=== PATIENT | female | born 1945 | race Caucasian/White ===

== ENCOUNTER → 2018-11-30 | Outpatient (CLI) | payer OTHER ==
[~2018-11-30] MED LIST: AZIT250 PO; CALCA500CH PO; CEFU500 PO; DESV50 PO; DOCU100 PO; ERGO50000 PO; ESCI10 PO; ESOM20 PO; Hydrocodone-Ap1 EA23 PO; LANS30EC; LEVSOD125 PO; LIOT5; LORPSEER24 PO; METF500 PO; NAPR220 PO; OMEP20ER; OXYACE5T PO; PANT40; PRAV20 PO; Prilosec Otc20 MG PO; Prinivil10 MG PO; VENL75ER
== END | disposition home or self-care (01) ==
LOC: PLD 08:04 → LAB SHORT 08:04
DX: L57.8 Other skin changes due to chronic exposure to nonionizing radiation (principal); L57.0 Actinic keratosis
CPT/HCPCS: 88305

== ENCOUNTER 2019-10-30 13:56 | Observation (INO) | payer OTHER ==
[~2019-10-30] VITALS: Ht 157.5 cm; Wt 100.2 kg
[~2019-10-30 13:56] MED LIST changes: -ESCI10 PO; -LEVSOD125 PO; -Prinivil10 MG PO
[2019-10-30 14:46] LABS: BASOPHILS PERCENT AUTO 1 % (0-2); EOSINOPHILS ABSOLUTE AUTO 0.36 K/mm3 (0.00-0.68); EOSINOPHILS PERCENT AUTO 5 % (0-6); Hematocrit 43.5 % (33.0-51.0); Hemoglobin 14.2 g/dL (11.5-16.0); IMMATURE GRAN ABSOLUTE AUTO 0.02 K/mm3 (0.00-0.10); IMMATURE GRAN PERCENT AUTO 0 % (0-1); LYMPHOCYTES ABSOLUTE AUTO 1.61 K/mm3 (0.84-5.20); LYMPHOCYTES PERCENT AUTO 22 % (21-46); MONOCYTES ABSOLUTE AUTO 0.84 K/mm3 (0.16-1.47); MONOCYTES PERCENT AUTO 11 % (4-13); Mean Corpuscular HGB 30.7 pg (26.0-34.0); Mean Corpuscular HGB Conc 32.6 g/dL (31.5-36.5); Mean Corpuscular Volume 94 fL (80-100); Mean Platelet Volume 9.5 fL (9.1-12.4); NEUTROPHILS ABSOLUTE AUTO 4.45 K/mm3 (1.96-9.15); NEUTROPHILS PERCENT AUTO 60 % (41-73); Platelet Count 342 K/mm3 (150-400); RDW Coefficient Variation 12.7 % (11.7-14.2); RDW Standard Deviation 43.7 fL (35.1-46.3); Red Blood Cell Count 4.62 M/mm3 (3.80-5.20); White Blood Cell Count 7.38 K/mm3 (4.00-11.30)
[2019-10-30 14:52] LABS: Alanine Aminotransfer (ALT/SGP 22 U/L (12-78); Albumin, Blood 3.7 g/dL (3.4-5.0); Albumin/Globulin Ratio 0.9 (0.8-1.8); Alk Phos 74 U/L (50-136); Anion Gap 9 mmol/L (6-16); Aspartate Aminotrans (AST/SGOT 37 U/L (12-37); Bilirubin, Total 0.5 mg/dL (0.1-1.0); Blood Urea Nitrogen 18 mg/dL (8-24); Bun/Creatinine Ratio 16.1 (12.0-20.0); CO2, Blood 22 mmol/L (21-32); Calcium, Blood 9.4 mg/dL (8.5-10.1); Chloride, Blood 105 mmol/L (98-108); Creatinine, Blood 1.12 mg/dL (0.40-1.00); Globulin, Blood 4.3 g/dL (2.2-4.0); Glomerular Filtration Rate 51 (60-); Glucose, Blood 95 mg/dL (70-99); Potassium, Blood 4.9 mmol/L (3.5-5.5); Sodium, Blood 136 mmol/L (136-145); Troponin I <0.015 ng/mL (0.000-0.040)
[2019-10-30] MEDS ORDERED: Prinivil10 MG PO (15:41)
[2019-10-30] MEDS ORDERED: ESCI10 PO (15:42)
[2019-10-30] MEDS ORDERED: EUTHYROX88 MCG PO (15:43)
[2019-10-30] MEDS ORDERED: ESOM20 PO (16:28)
[2019-10-30 17:01] LABS: International Normalized Ratio 1.07; Prothrombin Time Results 11.4 Sec (9.7-11.5)
--- NOTE | 2019-10-30 18:26 | NUR ---
Echocardiogram completed.
[2019-10-31 01:38] LABS: BASOPHILS ABSOLUTE AUTO 0.08 K/mm3 (0.00-0.23); BASOPHILS PERCENT AUTO 1 % (0-2); EOSINOPHILS ABSOLUTE AUTO 0.56 K/mm3 (0.00-0.68); EOSINOPHILS PERCENT AUTO 9 % (0-6); Hematocrit 40.5 % (33.0-51.0); Hemoglobin 13.3 g/dL (11.5-16.0); IMMATURE GRAN ABSOLUTE AUTO 0.02 K/mm3 (0.00-0.10); IMMATURE GRAN PERCENT AUTO 0 % (0-1); LYMPHOCYTES ABSOLUTE AUTO 1.84 K/mm3 (0.84-5.20); LYMPHOCYTES PERCENT AUTO 29 % (21-46); MONOCYTES ABSOLUTE AUTO 0.87 K/mm3 (0.16-1.47); MONOCYTES PERCENT AUTO 14 % (4-13); Mean Corpuscular HGB 31.4 pg (26.0-34.0); Mean Corpuscular HGB Conc 32.8 g/dL (31.5-36.5); Mean Corpuscular Volume 96 fL (80-100); Mean Platelet Volume 8.9 fL (9.1-12.4); NEUTROPHILS ABSOLUTE AUTO 3.06 K/mm3 (1.96-9.15); NEUTROPHILS PERCENT AUTO 48 % (41-73); Platelet Count 316 K/mm3 (150-400); RDW Coefficient Variation 12.9 % (11.7-14.2); RDW Standard Deviation 44.5 fL (35.1-46.3); Red Blood Cell Count 4.24 M/mm3 (3.80-5.20); White Blood Cell Count 6.43 K/mm3 (4.00-11.30)
[2019-10-31 02:20] LABS: Bun/Creatinine Ratio 18.5 (12.0-20.0); Creatinine, Blood 1.24 mg/dL (0.40-1.00); Magnesium, Blood 1.9 mg/dL (1.6-2.4); Potassium, Blood 4.5 mmol/L (3.5-5.5)
--- NOTE | 2019-10-31 02:31 | NUR ---
PT ADMITTED WITH NEW ONSET AFIB RVR AND CAME TO FLOOR ON HEPARIN GTT. APPT REVIEWED WITH PHARMACY AND WILL ADMINISTER BOLUS AND CONTINUE HEPARIN GTT AT HIGHER RATE. PT up indep in room denies chest pain or acute distress. SOB with activity . Echo done in ER showed EF 47%. Room air. Tele monitor shows sinus rate 60s to 92. occ PVC. to [place] Spouse. PT had flu vaccine this season at [facility]. PT smoked for 50 years quit 3 years ago. Does have co postnasal gtt and nonprod cough noted.
[2019-10-31] MEDS ORDERED: METO25 PO (10:20)
[2019-10-31] MEDS ORDERED: ELIQUIS5 MG PO (10:22)
--- NOTE | 2019-10-31 11:23 | NUR ---
PT PLEASANT COOP A/O . DENIES CHEST PAIN, PRESSURE. H/R REG, NO MURMER NOTED. PER TELE: NSR AT 63. NO EVENTS. LUNGS CLEAR, RESP EASY, UNLABORED. ON R.A. STATES SOB WITH EXERTION, BUT IMPROVED SINCE ADMIT. BT X4 LAST BM YEST. VOIDS INDEPENDANT TO BATHROOM. BED IN LOW POSITION, CALL LITE IN REACH, CALLS APPROP
--- NOTE | 2019-10-31 11:31 | NUR ---
REPORTED TO DR DE LA GARZA. PENDING D.C. PT STATES SOB WITH EXERTION, WALK ABOUT ARENAS. O2 DROPPED TO 89 FOR MOMENT THEN BACK TO 92-94. PT STATES BETTER. BUT NOT FULLY SO. DR SHAZIA SOLER.
--- NOTE | 2019-10-31 12:30 | NUR ---
PT DISCHARGE REVIEWED WITH PT. SHE VERBALIZED INDERSTANDING OF MEDS AND INSTR. IV PULLED INTACT. TELE REMOVED. [facility] CALLED
--- NOTE | 2019-10-31 12:36 | NUR ---
PT OUT WITH [facility] AT 1236
== END 2019-10-31 12:37 | disposition home or self-care (01) ==
LOC: ER 13:56 → MEDS 13:57 → ENPENDDIS 10-31 09:23 → MEDS 10-31 12:37
PROVIDERS: Emergency Medicine; Pharmacist; ADMIT Internal Medicine
DX: I48.0 Paroxysmal atrial fibrillation (principal); I10 Essential (primary) hypertension; N28.9 Disorder of kidney and ureter, unspecified; F32.9 Major depressive disorder, single episode, unspecified; E78.5 Hyperlipidemia, unspecified; K21.9 Gastro-esophageal reflux disease without esophagitis; E03.9 Hypothyroidism, unspecified; Z88.5 Allergy status to narcotic agent; Z91.041 Radiographic dye allergy status; Z88.2 Allergy status to sulfonamides; Z88.8 Allergy status to other drugs, medicaments and biological substances; Z87.891 Personal history of nicotine dependence; Z79.899 Other long term (current) drug therapy
CPT/HCPCS: 36415; 36416; 71046; 80048; 80053; 83735; 84484; 85025; 85379; 85610; 85730; 93005; 93010; 93306; 96366; 96374; 96376; 99285-25; A9270-GY; G0378; J1644

== ENCOUNTER 2019-11-05 10:37 | Emergency (ER) | payer OTHER ==
[~2019-11-05] VITALS: Ht 157.5 cm; Wt 99.8 kg
[~2019-11-05 10:37] MED LIST changes: +ELIQUIS5 MG PO; +ESCI10 PO; +EUTHYROX88 MCG PO; +METO25 PO; +Prinivil10 MG PO
[2019-11-05 11:27] LABS: BASOPHILS ABSOLUTE AUTO 0.06 K/mm3 (0.00-0.23); BASOPHILS PERCENT AUTO 1 % (0-2); EOSINOPHILS ABSOLUTE AUTO 0.41 K/mm3 (0.00-0.68); EOSINOPHILS PERCENT AUTO 5 % (0-6); Hematocrit 43.6 % (33.0-51.0); Hemoglobin 14.1 g/dL (11.5-16.0); IMMATURE GRAN ABSOLUTE AUTO 0.03 K/mm3 (0.00-0.10); IMMATURE GRAN PERCENT AUTO 0 % (0-1); LYMPHOCYTES ABSOLUTE AUTO 1.61 K/mm3 (0.84-5.20); LYMPHOCYTES PERCENT AUTO 21 % (21-46); MONOCYTES ABSOLUTE AUTO 0.83 K/mm3 (0.16-1.47); MONOCYTES PERCENT AUTO 11 % (4-13); Mean Corpuscular HGB 31.3 pg (26.0-34.0); Mean Corpuscular HGB Conc 32.3 g/dL (31.5-36.5); Mean Corpuscular Volume 97 fL (80-100); Mean Platelet Volume 9.1 fL (9.1-12.4); NEUTROPHILS ABSOLUTE AUTO 4.75 K/mm3 (1.96-9.15); NEUTROPHILS PERCENT AUTO 62 % (41-73); Platelet Count 318 K/mm3 (150-400); RDW Coefficient Variation 12.9 % (11.7-14.2); RDW Standard Deviation 45.5 fL (35.1-46.3); Red Blood Cell Count 4.51 M/mm3 (3.80-5.20); White Blood Cell Count 7.69 K/mm3 (4.00-11.30)
[2019-11-05 11:46] LABS: Alanine Aminotransfer (ALT/SGP 18 U/L (12-78); Albumin, Blood 3.5 g/dL (3.4-5.0); Albumin/Globulin Ratio 0.8 (0.8-1.8); Alk Phos 75 U/L (50-136); Anion Gap 7 mmol/L (6-16); Aspartate Aminotrans (AST/SGOT 24 U/L (12-37); Bilirubin, Total 0.4 mg/dL (0.1-1.0); Blood Urea Nitrogen 15 mg/dL (8-24); Bun/Creatinine Ratio 13.8 (12.0-20.0); CO2, Blood 23 mmol/L (21-32); Chloride, Blood 107 mmol/L (98-108); Creatinine, Blood 1.09 mg/dL (0.40-1.00); Globulin, Blood 4.2 g/dL (2.2-4.0); Glomerular Filtration Rate 52 (60-); Glucose, Blood 107 mg/dL (70-99); Potassium, Blood 4.3 mmol/L (3.5-5.5); Sodium, Blood 137 mmol/L (136-145); Total Protein, Blood 7.7 g/dL (6.4-8.2); Troponin I <0.015 ng/mL (0.000-0.040)
[2019-11-05] MEDS ORDERED: ALBU90OI INH (13:59)
[2019-11-05] MEDS ORDERED: BUDE6HFA INH (14:19)
[2019-11-05] MEDS ORDERED: Prednisone20 MG PO (14:19)
== END 2019-11-05 14:58 | disposition home or self-care (01) ==
LOC: ER 10:37
PROVIDERS: Emergency Medicine
DX: J43.9 Emphysema, unspecified (principal); J84.10 Pulmonary fibrosis, unspecified; R04.2 Hemoptysis; I10 Essential (primary) hypertension; E78.5 Hyperlipidemia, unspecified; K21.9 Gastro-esophageal reflux disease without esophagitis; E03.9 Hypothyroidism, unspecified; F32.9 Major depressive disorder, single episode, unspecified; E11.9 Type 2 diabetes mellitus without complications; Z88.5 Allergy status to narcotic agent; Z88.2 Allergy status to sulfonamides; Z79.899 Other long term (current) drug therapy; Z87.891 Personal history of nicotine dependence
CPT/HCPCS: 36415; 71046; 71260; 80053; 83880; 84484; 85025; 93005; 93010; 94644; 96374-59; 96375-59; 99284-25; J1200; J2930; Q9967

== ENCOUNTER 2020-05-11 18:04 | Inpatient (IN) | payer OTHER ==
[~2020-05-11] VITALS: Ht 160 cm; Wt 104.0 kg
[~2020-05-11 18:04] MED LIST changes: +ALBU90OI INH; +BUDE6HFA INH; +Cipro500 MG PO; -ELIQUIS5 MG PO; -EUTHYROX88 MCG PO; +Prednisone20 MG PO
[2020-05-11 19:41] LABS: BASOPHILS ABSOLUTE AUTO 0.07 K/mm3 (0.00-0.23); BASOPHILS PERCENT AUTO 1 % (0-2); EOSINOPHILS PERCENT AUTO 4 % (0-6); Hematocrit 34.7 % (33.0-51.0); Hemoglobin 10.6 g/dL (11.5-16.0); IMMATURE GRAN ABSOLUTE AUTO 0.05 K/mm3 (0.00-0.10); IMMATURE GRAN PERCENT AUTO 1 % (0-1); LYMPHOCYTES ABSOLUTE AUTO 1.82 K/mm3 (0.84-5.20); LYMPHOCYTES PERCENT AUTO 22 % (21-46); MONOCYTES ABSOLUTE AUTO 0.86 K/mm3 (0.16-1.47); MONOCYTES PERCENT AUTO 11 % (4-13); Mean Corpuscular HGB 28.3 pg (26.0-34.0); Mean Corpuscular HGB Conc 30.5 g/dL (31.5-36.5); Mean Corpuscular Volume 93 fL (80-100); Mean Platelet Volume 9.8 fL (9.1-12.4); NEUTROPHILS ABSOLUTE AUTO 5.06 K/mm3 (1.96-9.15); NEUTROPHILS PERCENT AUTO 62 % (41-73); Platelet Count 342 K/mm3 (150-400); RDW Coefficient Variation 13.9 % (11.7-14.2); RDW Standard Deviation 47.3 fL (35.1-46.3); Red Blood Cell Count 3.74 M/mm3 (3.80-5.20); White Blood Cell Count 8.16 K/mm3 (4.00-11.30)
[2020-05-11 19:56] LABS: Alanine Aminotransfer (ALT/SGP 32 U/L (12-78); Albumin, Blood 3.3 g/dL (3.4-5.0); Albumin/Globulin Ratio 0.8 (0.8-1.8); Alk Phos 82 U/L (50-136); Anion Gap 7 mmol/L (6-16); Aspartate Aminotrans (AST/SGOT 33 U/L (12-37); Bilirubin, Total 0.5 mg/dL (0.1-1.0); Blood Urea Nitrogen 13 mg/dL (8-24); Bun/Creatinine Ratio 12.7 (12.0-20.0); CO2, Blood 23 mmol/L (21-32); Calcium, Blood 8.6 mg/dL (8.5-10.1); Chloride, Blood 108 mmol/L (98-108); Creatinine, Blood 1.02 mg/dL (0.40-1.00); Glomerular Filtration Rate 56 (60-); Glucose, Blood 118 mg/dL (70-99); Potassium, Blood 4.3 mmol/L (3.5-5.5); Sodium, Blood 138 mmol/L (136-145); Total Protein, Blood 7.3 g/dL (6.4-8.2); Troponin I <0.015 ng/mL (0.000-0.040)
[2020-05-11] MEDS ORDERED: METOPROLOL TART25 MG PO (21:59)
[2020-05-11] MEDS ORDERED: ELIQUIS5 MG PO (21:59)
[2020-05-11] MEDS ORDERED: EUTHYROX88 MCG PO (22:00)
[2020-05-11] MEDS ORDERED: ESCI10 PO (22:00)
[2020-05-11] MEDS ORDERED: Ventolin/Prove6.7 GM INH (22:01)
[2020-05-11] MEDS ORDERED: SYMBICORT 160-4.6 GM INH (22:03)
[2020-05-11] MEDS ORDERED: ESOM20 PO (22:04)
[2020-05-11] MEDS ORDERED: CYAN500 PO (22:04)
[2020-05-12] MEDS ORDERED: CLARITIN-D 121 EAC1 PO (00:50)
[2020-05-12 01:18] LABS: Adenovirus Not Detected (NOT DETECT); Bordetella pertussis Not Detected (NOT DETECT); Chlamydophila pneumoniae Not Detected (NOT DETECT); Coronavirus 229E Not Detected (NOT DETECT); Coronavirus HKU1 Not Detected (NOT DETECT); Coronavirus NL63 Not Detected (NOT DETECT); Coronavirus OC43 Not Detected (NOT DETECT); Human Metapneumovirus Not Detected (NOT DETECT); Human Rhinovirus/Enterovirus Not Detected (NOT DETECT); Influenza A/2009-H1 Not Detected (NOT DETECT); Influenza A/H1 Not Detected (NOT DETECT); Influenza A/H3 Not Detected (NOT DETECT); Influenza B Not Detected (NOT DETECT); Mycoplasma pneumoniae Not Detected (NOT DETECT); Parainfluenza Virus 1 Not Detected (NOT DETECT); Parainfluenza Virus 2 Not Detected (NOT DETECT); Parainfluenza Virus 3 Not Detected (NOT DETECT); Parainfluenza Virus 4 Not Detected (NOT DETECT); Respiratory Syncytial Virus Not Detected (NOT DETECT); SARS-Cov-2 (COVID-19), BioFire Not Detected (NOT DETECT)
--- NOTE | 2020-05-12 05:29 | NUR ---
SHIFT SUMMARY NEW ADMIT, PT ARRIVED TO FLOOR AT 0025 FROM ED, INDEPENDENTLY TRANSERED TO BED, ALERT AND ORIENTED X4, NO COMPLAINTS T/O SHIFT. UNABLE TO TOLERATE CPAP THOUGH O2 SATS REMAIN ABOVE 90% WITH 4L NC. CALL LIGHT AND PERSONAL ITEMS ARE WITHIN REACH, PT ORIENTED TO AND ABLE TO USE APPROPRIATELY. WILL CONTINUE TO MONITOR UNTIL REPORT GIVEN TO DAY RN.
--- NOTE | 2020-05-12 14:48 | NUR ---
Spoke with Dr Garcia this AM and discussed case. Pt resting in bed upon arrival. Pt is requesting a breathing treatment. Bedside RN Lizette calls RT. RT arrives and provides breathing treatment with mask so Pt can continue with visit. Engaged in therapeutic listening as Pt expresses concerns regarding difficulty with communication between PCP and DME to obtain oxygen. Pt reports significant stress was created until she was able to obtain oxygen at home. Pt tearful at times and offered emotional support. Suggested ways to help reduce stress including recruiting family members for assistance and other stress relief techniques. Discussed how stress and anxiety can create cascade effect on breathing. Educated on deep breathing exercises and distraction techniques with V/U made by Pt. Continued therapeutic listening and answered questions. Pt reports concerns of having another sleep study scheduled and won't be able to attend while here in the hospital. Offered to contact pulmonoligist office to assist with this with Pt being agreeable. Pt expresses appreciation of visit. Called Dr Lindsey's office and relayed Pt's concern to staff. Staff will call sleep study office and relay Pt is in the hospital. Palliative Care will remain available for supportive therapeutic visits.
--- NOTE | 2020-05-12 18:44 | NUR ---
SHIFT SUMMARY PT IS ALERT AND ORIENTED X4, CAN BE ANXIOUS AT TIMES. INITIALLY PT WAS ON 3L NC WAS ABLE TO WEAN PT DOWN TO 2LNC AT REST. WITH ACTIVITY, PT WOULD REQUIRE INCREASE OF O2 TO 4L AND WOULD BE ABLE TO BE WEANED BACK DOWN, ONCE AT REST. TELEMETRY SHOW PT TO BE IN SINUS RHYTHM. VITALS HAVE BEEN STABLE.
--- NOTE | 2020-05-13 04:44 | NUR ---
BUFFING MACHINE OPERATOR SEMIAUTOMATIC SUMMARY RT RECOMMENED DOSE OF LASIX FOR CRACKLES IN LUNG BASES. OBTAINED ORDER FOR IV LASIX THAT APPEARED TO DECREASE DYSPNEA DURING EXERTION. CONTNIOUS BIOX IN PLACE RUNNING IN LOW TO MID 90S. WAS UNABLE TO TOLERATE CPAP DUE TO DISCOMFORT. CURRENTLY ON 2L O2 VIA NC. USES CALL LIGHT APPROPRIATELY. NO ACUTE DISTRESS NOTED. APPEARED TO SLEEP T/O THE NIGHT. BED IN LOWEST POSITION WITH CALL LIGHT IN REACH. WILL CONTINUE TO MONITOR AND REPORT TO ONCOMING RN.
[2020-05-13 05:49] LABS: Calcium, Blood 9.4 mg/dL (8.5-10.1); Creatinine, Blood 1.24 mg/dL (0.40-1.00); Potassium, Blood 4.1 mmol/L (3.5-5.5)
[2020-05-13] MEDS ORDERED: FUROSEMIDE20 MG PO (15:44)
[2020-05-13] MEDS ORDERED: LISI5 PO (15:44)
[2020-05-13] MEDS ORDERED: PRED20 PO (15:45)
--- NOTE | 2020-05-13 16:16 | NUR ---
PATIENT DISCHARGED TO HOME IN THE COMPANY OF HER SPOUSE ELIZ. IV SL REMOVED WITHOUT INCIDENT. EDUCATION PROVIDED ABOUT NEW MEDICATIONS AND PT VERBALIZED UNDERSTANDING. TAKEN DOWNSTAIRS VIA W/C BY D/C VOLUNTEER AT 1614.
--- NOTE | 2020-05-13 17:33 | NUR ---
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 She was quite tearful and told me she was feeling overwhelmed by her recent medical complications. Alycia admitted to me that she does not really understand her illnesses--symptom management and prognosis. She responded well to gentle executive assistant to general counsel and theraputic listeing. Provided emotional affirmation and prayer to good effect. Alycia will benefit from an [id number] explaination of her illnesses in layman's terms. She will also benefit from education on symptom management and things she can do to help. Giving her a sense of power and control in managing her health may make things less frightening for Alycia. I will remain available.
== END 2020-05-13 16:15 | disposition home or self-care (01) | DRG 189 ==
LOC: ER 18:04 → MEDS 18:05 → ER 21:58 → MEDS 05-12 00:28
PROVIDERS: Internal Medicine; Physician Assistant; ADMIT Family Medicine
PROC: 5A09357 Assistance with Respiratory Ventilation, Less than 24 Consecutive Hours, Continuous Positive Airway Pressure (ICD-10-PCS; principal; 2020-05-11)
DX: J96.21 Acute and chronic respiratory failure with hypoxia (principal); I50.42 Chronic combined systolic (congestive) and diastolic (congestive) heart failure; I13.0 Hypertensive heart and chronic kidney disease with heart failure and stage 1 through stage 4 chronic kidney disease, or unspecified chronic kidney disease; J84.9 Interstitial pulmonary disease, unspecified; Z68.41 Body mass index [BMI] 40.0-44.9, adult; J43.9 Emphysema, unspecified; J96.22 Acute and chronic respiratory failure with hypercapnia; N18.3 Chronic kidney disease, stage 3 (moderate); I48.0 Paroxysmal atrial fibrillation; E66.9 Obesity, unspecified; E11.22 Type 2 diabetes mellitus with diabetic chronic kidney disease; G47.33 Obstructive sleep apnea (adult) (pediatric); Z87.891 Personal history of nicotine dependence
CPT/HCPCS: 0202U; 36415; 71046; 80048; 80053; 82947; 83880; 84145; 84484; 85025; 93005; 93010; 94640; 94660; 94762; 96374; 96375; 96376; 99285-25; A9270; A9270-GY; G0378; J1940; J2930; U0002

== ENCOUNTER 2020-05-20 14:39 | Emergency (ER) | payer OTHER ==
[~2020-05-20] VITALS: Ht 167.6 cm; Wt 99.8 kg
[~2020-05-20 14:39] MED LIST changes: +CLARITIN-D 121 EAC1 PO; +CYAN500 PO; +ELIQUIS5 MG PO; +EUTHYROX88 MCG PO; +FUROSEMIDE20 MG PO; +LISI5 PO; +METOPROLOL TART25 MG PO; +PRED20 PO; +SYMBICORT 160-4.6 GM INH; +Ventolin/Prove6.7 GM INH
[2020-05-20 15:05] LABS: BASOPHILS ABSOLUTE AUTO 0.06 K/mm3 (0.00-0.23); BASOPHILS PERCENT AUTO 1 % (0-2); EOSINOPHILS ABSOLUTE AUTO 0.29 K/mm3 (0.00-0.68); EOSINOPHILS PERCENT AUTO 3 % (0-6); Hematocrit 39.9 % (33.0-51.0); Hemoglobin 12.4 g/dL (11.5-16.0); IMMATURE GRAN ABSOLUTE AUTO 0.06 K/mm3 (0.00-0.10); IMMATURE GRAN PERCENT AUTO 1 % (0-1); LYMPHOCYTES ABSOLUTE AUTO 2.27 K/mm3 (0.84-5.20); LYMPHOCYTES PERCENT AUTO 24 % (21-46); MONOCYTES ABSOLUTE AUTO 0.88 K/mm3 (0.16-1.47); MONOCYTES PERCENT AUTO 9 % (4-13); Mean Corpuscular HGB 28.4 pg (26.0-34.0); Mean Corpuscular HGB Conc 31.1 g/dL (31.5-36.5); Mean Corpuscular Volume 91 fL (80-100); Mean Platelet Volume 9.3 fL (9.1-12.4); NEUTROPHILS ABSOLUTE AUTO 5.85 K/mm3 (1.96-9.15); NEUTROPHILS PERCENT AUTO 62 % (41-73); Platelet Count 390 K/mm3 (150-400); RDW Coefficient Variation 13.8 % (11.7-14.2); RDW Standard Deviation 46.5 fL (35.1-46.3); Red Blood Cell Count 4.37 M/mm3 (3.80-5.20); White Blood Cell Count 9.41 K/mm3 (4.00-11.30)
[2020-05-20 15:22] LABS: Alanine Aminotransfer (ALT/SGP 21 U/L (12-78); Albumin, Blood 3.3 g/dL (3.4-5.0); Albumin/Globulin Ratio 0.9 (0.8-1.8); Alk Phos 61 U/L (50-136); Anion Gap 10 mmol/L (6-16); Aspartate Aminotrans (AST/SGOT 16 U/L (12-37); Bilirubin, Total 0.5 mg/dL (0.1-1.0); Blood Urea Nitrogen 23 mg/dL (8-24); CO2, Blood 23 mmol/L (21-32); Calcium, Blood 8.6 mg/dL (8.5-10.1); Chloride, Blood 103 mmol/L (98-108); Creatinine, Blood 1.44 mg/dL (0.40-1.00); Globulin, Blood 3.5 g/dL (2.2-4.0); Glomerular Filtration Rate 38 (60-); Glucose, Blood 201 mg/dL (70-99); Potassium, Blood 3.9 mmol/L (3.5-5.5); Sodium, Blood 136 mmol/L (136-145); Total Protein, Blood 6.8 g/dL (6.4-8.2); Troponin I <0.015 ng/mL (0.000-0.040)
== END 2020-05-20 16:30 | disposition left against medical advice (07) ==
LOC: ER 14:39
PROVIDERS: Physician Assistant
DX: R07.89 Other chest pain (principal); R06.02 Shortness of breath; J44.9 Chronic obstructive pulmonary disease, unspecified; E03.9 Hypothyroidism, unspecified; E11.9 Type 2 diabetes mellitus without complications; Z88.5 Allergy status to narcotic agent; Z91.041 Radiographic dye allergy status; Z88.8 Allergy status to other drugs, medicaments and biological substances; Z88.2 Allergy status to sulfonamides; Z79.899 Other long term (current) drug therapy; Z79.01 Long term (current) use of anticoagulants; Z79.52 Long term (current) use of systemic steroids; Z87.891 Personal history of nicotine dependence
CPT/HCPCS: 36415; 71046; 80053; 83880; 84484; 85025; 93005; 93010; 99285-25

== ENCOUNTER 2020-07-18 16:08 | Emergency (ER) | payer OTHER ==
[~2020-07-18] VITALS: Ht 157.5 cm; Wt 104.3 kg
[2020-07-18 17:24] LABS: BASOPHILS ABSOLUTE AUTO 0.08 K/mm3 (0.00-0.23); BASOPHILS PERCENT AUTO 1 % (0-2); EOSINOPHILS ABSOLUTE AUTO 0.24 K/mm3 (0.00-0.68); EOSINOPHILS PERCENT AUTO 3 % (0-6); Hematocrit 34.8 % (33.0-51.0); Hemoglobin 10.9 g/dL (11.5-16.0); IMMATURE GRAN ABSOLUTE AUTO 0.03 K/mm3 (0.00-0.10); IMMATURE GRAN PERCENT AUTO 0 % (0-1); LYMPHOCYTES ABSOLUTE AUTO 2.52 K/mm3 (0.84-5.20); LYMPHOCYTES PERCENT AUTO 31 % (21-46); MONOCYTES PERCENT AUTO 10 % (4-13); Mean Corpuscular HGB Conc 31.3 g/dL (31.5-36.5); Mean Corpuscular Volume 86 fL (80-100); Mean Platelet Volume 9.1 fL (9.1-12.4); NEUTROPHILS ABSOLUTE AUTO 4.48 K/mm3 (1.96-9.15); NEUTROPHILS PERCENT AUTO 55 % (41-73); Platelet Count 379 K/mm3 (150-400); RDW Coefficient Variation 14.4 % (11.7-14.2); RDW Standard Deviation 45.5 fL (35.1-46.3); Red Blood Cell Count 4.04 M/mm3 (3.80-5.20); White Blood Cell Count 8.15 K/mm3 (4.00-11.30)
[2020-07-18 17:43] LABS: Alanine Aminotransfer (ALT/SGP 17 U/L (12-78); Albumin, Blood 3.5 g/dL (3.4-5.0); Albumin/Globulin Ratio 0.9 (0.8-1.8); Alk Phos 83 U/L (50-136); Anion Gap 8 mmol/L (6-16); Aspartate Aminotrans (AST/SGOT 18 U/L (12-37); Bilirubin, Total 0.3 mg/dL (0.1-1.0); Blood Urea Nitrogen 14 mg/dL (8-24); Bun/Creatinine Ratio 13.1 (12.0-20.0); CO2, Blood 25 mmol/L (21-32); Chloride, Blood 110 mmol/L (98-108); Creatinine, Blood 1.07 mg/dL (0.40-1.00); Globulin, Blood 3.7 g/dL (2.2-4.0); Glomerular Filtration Rate 53 (60-); Glucose, Blood 129 mg/dL (70-99); Potassium, Blood 3.9 mmol/L (3.5-5.5); Sodium, Blood 143 mmol/L (136-145); Total Protein, Blood 7.2 g/dL (6.4-8.2); Troponin I <0.015 ng/mL (0.000-0.040)
[2020-07-18 23:28] LABS: Adenovirus Not Detected (NOT DETECT); Bordetella pertussis Not Detected (NOT DETECT); Chlamydophila pneumoniae Not Detected (NOT DETECT); Coronavirus 229E Not Detected (NOT DETECT); Coronavirus HKU1 Not Detected (NOT DETECT); Coronavirus NL63 Not Detected (NOT DETECT); Coronavirus OC43 Not Detected (NOT DETECT); Human Metapneumovirus Not Detected (NOT DETECT); Human Rhinovirus/Enterovirus Not Detected (NOT DETECT); Influenza A/2009-H1 Not Detected (NOT DETECT); Influenza A/H1 Not Detected (NOT DETECT); Influenza A/H3 Not Detected (NOT DETECT); Influenza B Not Detected (NOT DETECT); Mycoplasma pneumoniae Not Detected (NOT DETECT); Parainfluenza Virus 1 Not Detected (NOT DETECT); Parainfluenza Virus 2 Not Detected (NOT DETECT); Parainfluenza Virus 3 Not Detected (NOT DETECT); Parainfluenza Virus 4 Not Detected (NOT DETECT); Respiratory Syncytial Virus Not Detected (NOT DETECT); SARS-Cov-2 (COVID-19), BioFire Not Detected (NOT DETECT)
== END 2020-07-19 01:20 | disposition home or self-care (01) ==
LOC: ER 16:08
PROVIDERS: Physician Assistant
DX: J44.9 Chronic obstructive pulmonary disease, unspecified (principal); Z79.01 Long term (current) use of anticoagulants; Z79.899 Other long term (current) drug therapy; Z79.51 Long term (current) use of inhaled steroids; Z20.828 Contact with and (suspected) exposure to other viral communicable diseases
CPT/HCPCS: 0202U; 36415; 71045; 80053; 83880; 84484; 85025; 93005; 93010; 99285-25

== ENCOUNTER → 2021-03-23 | Outpatient (CLI) | payer OTHER ==
[2021-03-23 21:45] LABS: Stool Occult Bld Immuno 1 Negative (NEGATIVE)
== END | disposition home or self-care (01) ==
LOC: LAB 15:29 → LAB SHORT 15:29
PROVIDERS: Family Medicine
DX: Z12.11 Encounter for screening for malignant neoplasm of colon (principal)
CPT/HCPCS: G0328

== ENCOUNTER → 2022-09-20 | Outpatient (CLI) | payer MEDICARE ==
[~2022-09-20] MED LIST changes: +Norco 5-325 Ta1 EACH PO
== END | disposition home or self-care (01) ==
LOC: LAB SHORT 10:21 → LAB 10:21
DX: J44.1 Chronic obstructive pulmonary disease with (acute) exacerbation (principal)
CPT/HCPCS: 87070; 87205

== ENCOUNTER 2022-10-05 18:26 | Inpatient (IN) | payer MEDICARE ==
[~2022-10-05] VITALS: Ht 157.5 cm; Wt 84.0 kg
[2022-10-05 19:58] LABS: BASOPHILS PERCENT AUTO 1 % (0-2); EOSINOPHILS ABSOLUTE AUTO 0.26 K/mm3 (0.00-0.68); EOSINOPHILS PERCENT AUTO 3 % (0-6); Hematocrit 36.7 % (33.0-51.0); Hemoglobin 11.4 g/dL (11.5-16.0); IMMATURE GRAN ABSOLUTE AUTO 0.04 K/mm3 (0.00-0.10); IMMATURE GRAN PERCENT AUTO 1 % (0-1); LYMPHOCYTES ABSOLUTE AUTO 1.06 K/mm3 (0.84-5.20); LYMPHOCYTES PERCENT AUTO 12 % (21-46); MONOCYTES ABSOLUTE AUTO 0.85 K/mm3 (0.16-1.47); MONOCYTES PERCENT AUTO 10 % (4-13); Mean Corpuscular HGB 25.6 pg (26.0-34.0); Mean Corpuscular HGB Conc 31.1 g/dL (31.5-36.5); Mean Corpuscular Volume 83 fL (80-100); Mean Platelet Volume 9.1 fL (9.1-12.4); NEUTROPHILS ABSOLUTE AUTO 6.42 K/mm3 (1.96-9.15); NEUTROPHILS PERCENT AUTO 74 % (41-73); Platelet Count 316 K/mm3 (150-400); RDW Coefficient Variation 18.2 % (11.7-14.2); RDW Standard Deviation 54.4 fL (35.1-46.3); Red Blood Cell Count 4.45 M/mm3 (3.80-5.20); White Blood Cell Count 8.73 K/mm3 (4.00-11.30)
[2022-10-05 20:19] LABS: Albumin, Blood 3.1 g/dL (3.4-5.0); Albumin/Globulin Ratio 0.8 (0.8-1.8); Bilirubin, Total 0.5 mg/dL (0.1-1.0); Bun/Creatinine Ratio 18.3 (12.0-20.0); Calcium, Blood 8.8 mg/dL (8.5-10.1); Creatinine, Blood 1.42 mg/dL (0.40-1.00); Globulin, Blood 3.7 g/dL (2.2-4.0); Potassium, Blood 4.5 mmol/L (3.5-5.5); Total Protein, Blood 6.8 g/dL (6.4-8.2)
[2022-10-06 00:01] LABS: Thyroid Stimulating Hormone 2.44 uIU/mL (0.360-4.800)
--- NOTE | 2022-10-06 05:37 | NUR ---
SHIFT SUMMARY PT CAME TO PCU THIS AFTERNOON WITH ADMITTING DX OF CP. PT IS AMBULATORY, CONT OF URINE AND BOWEL, IS A&OX4, MOVES IND IN BED, AND IS PLEASENTLY COOPERATIVE. PT IS ON 3-4L NC AT BASELINE AND HAS BEEN 3-5L SINCE ARRIVING TO PCU. VS HAVE REMAINED STABLE, AND THE PT HAS HAD NO COMPLAINTS OF ANGINA, N/V/D, WEAKNESS, OR DISTRESS. PT STATES THAT SHE IS SOB AT BASELINE AND SHE IS HAVING HER BASELINE SOB. THE BED IS IN LOW, CALL LIGHT IS IN REACH, AND BED ALARM IS ON. SEE NOTES FOR ANY UPDATES,
--- NOTE | 2022-10-06 10:52 | NUR ---
Alerted by logistics tech that pt had had bradycardia, to 38 bpm. She was sitting up in the chair at the time, and felt no symptoms. At this time she wants to get back into bed, and used the bedside commode to void and then to the bed, with mild dyspnea, and hypoxia to 85% spo2 on 3 l/min of oxygen. she states that her home dose is 3-4 l/min. . She was not in distress. Oxygen delivery increased to 4 l/min. Recovery within just a few minutes of lying in bed, spo2 to 90-93% and resting respiratory rate 18-20/minute.
[2022-10-06] MEDS ORDERED: BEVESPI AEROS10.7 G1 INH (11:17)
[2022-10-06] MEDS ORDERED: FLUT.05NI (11:18)
[2022-10-06] MEDS ORDERED: OMEP20ER PO (11:20)
[2022-10-06] MEDS ORDERED: METO25ER PO (11:23)
[2022-10-06] MEDS ORDERED: POTA10T PO (11:24)
--- NOTE | 2022-10-06 14:24 | NUR ---
Call to Dr. Callaway regarding pt's bradycardia. Order re'cd to hold the metoprolol this evening, restart as ordered in the morning.
--- NOTE | 2022-10-06 17:44 | NUR ---
Pt states that she does NOT have atrial fibrillation; states that it was a misdiagnosis in 2020 and she got off her eliquis about a year later. Declined the eliquis this evening.
--- NOTE | 2022-10-06 17:54 | NUR ---
Sitting on side of bed for meals, up to bedside commode. Has mild dyspnea with the activity, and spo2 dips to 85-89% with activity, recovery usually within a minute to 90-93% spo2.
--- NOTE | 2022-10-06 18:49 | NUR ---
Up to bedside commode independently, while wearing her oxygen at 4 l/min. SpO2 decreased to 78% at the lowest while she was getting back to sit on side of the bed. She was not in distress, but showed some dyspnea. Instructed pt on pursed lip breathing for recovery, and she recovered to 92% spo2 without any increase in the oxygen delivery, within a minute or two.
--- NOTE | 2022-10-06 19:40 | NUR ---
ASSESSMENT/ASSUMED CARE PT SITTING UP IN BED READING AND WATCHING TV. DENIES CHEST PAIN OR PRESSURE. SPEECH CLEAR AND PT ANSWERING QUESTIONS APPROP. LUNGS CLEAR BUT DECREASED ON 4 LITERS O2 VIA NC. PT REPORTS THAT SHE HAS A CPAP, BUT DOES NOT USE IT. NONPRODUCTIVE COUGH NOTED. PT REPORTS IMPROVED BREATHING SINCE ADMIT. HEART RATE REGULAR IN THE 80'S. BP STABLE. NO EDEMA NOTED. BT+ ABD SOFT AND NONTENDER. DENIES N/V. IV 20G TO LEFT AC SALINE LOCKED. FLUSHED WITHOUT DIFFICULTY. PT MOVING SELF AROUND IN BED.
--- NOTE | 2022-10-06 22:40 | NUR ---
PAIN PT C/O BACK PAIN. STATES,"I TAKE 8 HR TYLENOL AT HOME WHEN THIS HAPPENS" KPAD APPLIED. CALL TO DR DELCID REGARDING PAIN. RECEIVED ORDER FOR TYLENOL.
[2022-10-07 04:12] LABS: Bun/Creatinine Ratio 17.8 (12.0-20.0); Calcium, Blood 9.1 mg/dL (8.5-10.1); Creatinine, Blood 1.35 mg/dL (0.40-1.00); Percent Saturation 8.8 % (15.0-50.0); Potassium, Blood 3.9 mmol/L (3.5-5.5)
--- NOTE | 2022-10-07 07:58 | NUR ---
PT up to BSC independently. Spo2 down to 80s, as low as 78 during the activity. She was not dysneic, but did show mild shortness of breath. Using pursed lip breathing for recovery. Now sitting up in chair eating breakfast. NPO after breakfast except water for 2nd portion of stress test today at 1330.
--- NOTE | 2022-10-07 17:59 | NUR ---
SUMMARY Pt has been alert, oriented and pleasantly conversant today. Expressed feeling overwhelmed and confused this morning after rounding because of all the information which she had received. Pt education was done and her questions answered; she expressed that it helped. Printed materials provided which she read during the day. She has been up to BSC frequently today, and her SpO2 drops quickly to low 80s or even to 78% with minimal exertion during that activity. While sitting in the chair she also can have spo2 of 85-86% while doing sitting activities. She has been wearing 3-5 l/min of oxygen today. Her home CPAP was brought in for her to use while sleeping. STates that she doesn't use the CPAP very much at home because the mask is "awful". Uncertain if it doesn't fit or she doesn't tolerate it. Appetite has been fair today. Stress test was completed. Her main concern going forward is her activity intolerance and feeling weak. She would really like to be able to walk around her home without being "weak and winded".
[2022-10-08 04:26] LABS: Bun/Creatinine Ratio 18.1 (12.0-20.0); Calcium, Blood 9.8 mg/dL (8.5-10.1); Creatinine, Blood 1.44 mg/dL (0.40-1.00); Potassium, Blood 4.2 mmol/L (3.5-5.5)
--- NOTE | 2022-10-08 04:55 | NUR ---
SHIFT SUMMARY: PT ALERT AND ORIENTED X4, ABLE TO FOLLOW COMMANDS AND MAKE NEEDS KNOWN. BP STABLE, HR SR-ST 80-100'S, AFEBRILE, PT ON 3-5L HIFLOW SATS >90%. PT QUICKLY DESATS WITH ACTIVITY, LUNG SOUNDS WITH WHEEZES IN BASES. NO COMPLAINTS OF CP/PRESSURE THROUGHOUT THE NIGHT. PT COMPLAINED OF LEG CRAMPING, NEW ORDERS RECEIVED, SEE EMAR. PT IND TO BEDSIDE CAMMODE, APPROX 900ML OF URINARY OUTPUT, NO BM. BED IN LOW, CALL LIGHT IN REACH, WILL REPORT TO ONCOMING RN.
--- NOTE | 2022-10-08 07:21 | NUR ---
ASSUMED CARE: PT RESTING QUIETLY AT THIS TIME. 5L O2 VIA NC. NIGHT RN REPORTS SOB WITH EXERTION. NSR AT 72 ON TELE AT THIS TIME. NO ACUTE NEEDS OR CONCERNS.
--- NOTE | 2022-10-08 17:40 | NUR ---
SHIFT SUMMARY PT UP FROM PCU6. PT ALERT AND ORIENTED, CALLS APPROPRIATELY. PT INDEPENDENT IN ROOM. PT ON 3-6L NC, NEEDS VARY WITH EXERTION. PT ON CONTINUOUS PULSE OX. NO C/O PAIN. PRN ALBUTEROL ADMINISTERED FOR SOB, EFFECTIVE. WILL CONTINUE TO MONITOR. CALL LIGHT WITHIN REACH.
--- NOTE | 2022-10-09 03:51 | NUR ---
SHIFT SUMMARY NOC PT A/O X 4. PT ON 6L/NC SPO2 > 90%. SHE DROPS INTO LOW 80'S UPON EXERTION AND SOB. PT IS ON CX BIOX. PT HAD C/O SOB AT SHIFT CHANGE AND RT GAVE BREATHING TX AND SET UP CPAP. PT ON TELE AT SR @ 85 BPM. PT HAD NO C/O CP/DISCOMFORT. PT PLEASANT AND COOPERATIVE WITH CARE. PT IS CURRENTLY RESTING WITH BED IN LOWEST POSITION AND CALL LIGHT WITHIN REACH. WCTM.
[2022-10-09 05:49] LABS: Bun/Creatinine Ratio 18.7 (12.0-20.0); Calcium, Blood 9.5 mg/dL (8.5-10.1); Creatinine, Blood 2.03 mg/dL (0.40-1.00); Potassium, Blood 4.4 mmol/L (3.5-5.5)
[2022-10-09] MEDS ORDERED: TORSE20 PO (13:46)
--- NOTE | 2022-10-09 14:19 | NUR ---
PATIENT DISCHARGED TO HOME ACCOMPANIED BY A FAMILY MEMBER (NIECE?). VERBALIZED UNDERSTANDING OF D/C INSTRUCTIONS, PLANS TO BUY A SCALE TO WEIGH SELF DAILY. IV SALINE LOCK AND TELEMETRY REMOVED WITHOUT INCIDENT. OFF UNIT VIA W/C AT 1410. NO PERSONAL BELONGINGS LEFT BEHIND IN ROOM.
== END 2022-10-09 14:09 | disposition home or self-care (01) | DRG 291 ==
LOC: ER 18:26 → PCU 18:27 → MEDS 10-07 16:14 → PCU 10-07 16:14 → MEDS 10-08 10:40
PROVIDERS: Emergency Medicine; Family Medicine; Internal Medicine; ADMIT Internal Medicine
DX: I13.0 Hypertensive heart and chronic kidney disease with heart failure and stage 1 through stage 4 chronic kidney disease, or unspecified chronic kidney disease (principal); I50.23 Acute on chronic systolic (congestive) heart failure; I48.20 Chronic atrial fibrillation, unspecified; G47.33 Obstructive sleep apnea (adult) (pediatric); I20.9 Angina pectoris, unspecified; J43.9 Emphysema, unspecified; E03.9 Hypothyroidism, unspecified; K21.9 Gastro-esophageal reflux disease without esophagitis; F32.A Depression, unspecified; E78.5 Hyperlipidemia, unspecified; M19.90 Unspecified osteoarthritis, unspecified site; D50.9 Iron deficiency anemia, unspecified; N18.32 Chronic kidney disease, stage 3b; D63.1 Anemia in chronic kidney disease; E11.22 Type 2 diabetes mellitus with diabetic chronic kidney disease; Z90.49 Acquired absence of other specified parts of digestive tract; Z90.89 Acquired absence of other organs; Z90.710 Acquired absence of both cervix and uterus; Z98.890 Other specified postprocedural states; Z88.5 Allergy status to narcotic agent; Z88.0 Allergy status to penicillin; Z88.2 Allergy status to sulfonamides; Z88.6 Allergy status to analgesic agent; Z88.8 Allergy status to other drugs, medicaments and biological substances; Z79.01 Long term (current) use of anticoagulants; Z79.890 Hormone replacement therapy; Z79.899 Other long term (current) drug therapy
CPT/HCPCS: 36415; 71046; 78452; 80048; 80053; 82728; 83540; 83550; 83690; 83880; 84132; 84443; 84484; 85025; 85379; 93005; 93010; 93017; 93306; 94640; 94660; 94664; 94762; 96374; 96376; 97110; 97162; 97530; 99285-25; A9270; A9500; G0378; J1940; J2785

== ENCOUNTER 2023-05-03 09:23 | Emergency (ER) | payer OTHER ==
[~2023-05-03] VITALS: Ht 160 cm; Wt 72.6 kg
[~2023-05-03 09:23] MED LIST changes: +BEVESPI AEROS10.7 G1 INH; +FLUT.05NI; +METO25ER PO; +OMEP20ER PO; +POTA10T PO; +TORSE20 PO
[2023-05-03 09:38] VITALS: BP 126/69
[2023-05-03 10:24] LABS: BASOPHILS ABSOLUTE AUTO 0.08 K/mm3 (0.00-0.23); BASOPHILS PERCENT AUTO 1 % (0-2); EOSINOPHILS ABSOLUTE AUTO 0.17 K/mm3 (0.00-0.68); EOSINOPHILS PERCENT AUTO 2 % (0-6); Hematocrit 48.6 % (33.0-51.0); Hemoglobin 16.3 g/dL (11.5-16.0); IMMATURE GRAN ABSOLUTE AUTO 0.02 K/mm3 (0.00-0.10); IMMATURE GRAN PERCENT AUTO 0 % (0-1); LYMPHOCYTES ABSOLUTE AUTO 1.31 K/mm3 (0.84-5.20); LYMPHOCYTES PERCENT AUTO 17 % (21-46); MONOCYTES PERCENT AUTO 10 % (4-13); Mean Corpuscular HGB Conc 33.5 g/dL (31.5-36.5); Mean Corpuscular Volume 98 fL (80-100); Mean Platelet Volume 9.4 fL (9.1-12.4); NEUTROPHILS ABSOLUTE AUTO 5.39 K/mm3 (1.96-9.15); NEUTROPHILS PERCENT AUTO 69 % (41-73); Platelet Count 274 K/mm3 (150-400); RDW Coefficient Variation 13.5 % (11.7-14.2); RDW Standard Deviation 49.5 fL (35.1-46.3); Red Blood Cell Count 4.94 M/mm3 (3.80-5.20); White Blood Cell Count 7.77 K/mm3 (4.00-11.30)
[2023-05-03 10:44] LABS: Albumin, Blood 3.3 g/dL (3.4-5.0); Albumin/Globulin Ratio 0.8 (0.8-1.8); Bilirubin, Total 0.7 mg/dL (0.1-1.0); Calcium, Blood 9.6 mg/dL (8.5-10.1); Creatinine, Blood 2.24 mg/dL (0.40-1.00); Globulin, Blood 4.4 g/dL (2.2-4.0); Potassium, Blood 5.2 mmol/L (3.5-5.5); Total Protein, Blood 7.7 g/dL (6.4-8.2)
== END 2023-05-03 11:41 | disposition home or self-care (01) ==
LOC: ER 09:23
PROVIDERS: Emergency Medicine
DX: H34.9 Unspecified retinal vascular occlusion (principal); E11.9 Type 2 diabetes mellitus without complications; J43.9 Emphysema, unspecified; E03.9 Hypothyroidism, unspecified; I11.0 Hypertensive heart disease with heart failure; I50.9 Heart failure, unspecified; Z88.5 Allergy status to narcotic agent; Z88.2 Allergy status to sulfonamides; Z88.8 Allergy status to other drugs, medicaments and biological substances; Z79.890 Hormone replacement therapy; Z79.899 Other long term (current) drug therapy
CPT/HCPCS: 70450; 80053; 85025; 93005; 93010; 99284-25

== ENCOUNTER 2023-06-25 18:14 | Emergency (ER) | payer OTHER ==
[~2023-06-25] VITALS: Ht 157.5 cm; Wt 74.8 kg
[2023-06-25 18:53] LABS: BASOPHILS ABSOLUTE AUTO 0.09 K/mm3 (0.00-0.23); BASOPHILS PERCENT AUTO 1 % (0-2); EOSINOPHILS ABSOLUTE AUTO 0.29 K/mm3 (0.00-0.68); EOSINOPHILS PERCENT AUTO 4 % (0-6); Hematocrit 45.3 % (33.0-51.0); Hemoglobin 15.2 g/dL (11.5-16.0); IMMATURE GRAN ABSOLUTE AUTO 0.05 K/mm3 (0.00-0.10); IMMATURE GRAN PERCENT AUTO 1 % (0-1); LYMPHOCYTES PERCENT AUTO 20 % (21-46); MONOCYTES ABSOLUTE AUTO 0.82 K/mm3 (0.16-1.47); MONOCYTES PERCENT AUTO 11 % (4-13); Mean Corpuscular HGB 33.3 pg (26.0-34.0); Mean Corpuscular HGB Conc 33.6 g/dL (31.5-36.5); Mean Corpuscular Volume 99 fL (80-100); Mean Platelet Volume 9.5 fL (9.1-12.4); NEUTROPHILS ABSOLUTE AUTO 4.54 K/mm3 (1.96-9.15); NEUTROPHILS PERCENT AUTO 63 % (41-73); Platelet Count 300 K/mm3 (150-400); RDW Coefficient Variation 12.9 % (11.7-14.2); Red Blood Cell Count 4.57 M/mm3 (3.80-5.20); White Blood Cell Count 7.19 K/mm3 (4.00-11.30)
[2023-06-25 19:20] LABS: Albumin, Blood 3.3 g/dL (3.4-5.0); Albumin/Globulin Ratio 0.7 (0.8-1.8); Bilirubin, Total 0.2 mg/dL (0.1-1.0); Bun/Creatinine Ratio 23.8 (12.0-20.0); Calcium, Blood 9.2 mg/dL (8.5-10.1); Creatinine, Blood 2.14 mg/dL (0.40-1.00); Globulin, Blood 4.5 g/dL (2.2-4.0); Potassium, Blood 4.5 mmol/L (3.5-5.5); Total Protein, Blood 7.8 g/dL (6.4-8.2)
[2023-06-25] MEDS ORDERED: AZIT250 PO (20:33)
[2023-06-25] MEDS ORDERED: DELTASONE20 MG PO (20:33)
[2023-06-25 20:46] VITALS: BP 112/63
== END 2023-06-25 20:46 | disposition home or self-care (01) ==
LOC: ER 18:14
PROVIDERS: Physician Assistant
DX: J44.1 Chronic obstructive pulmonary disease with (acute) exacerbation (principal); E11.9 Type 2 diabetes mellitus without complications; G47.30 Sleep apnea, unspecified; I48.91 Unspecified atrial fibrillation; E03.9 Hypothyroidism, unspecified; I11.0 Hypertensive heart disease with heart failure; K21.9 Gastro-esophageal reflux disease without esophagitis; E78.5 Hyperlipidemia, unspecified; I50.9 Heart failure, unspecified; M19.90 Unspecified osteoarthritis, unspecified site; Z99.81 Dependence on supplemental oxygen; Z87.891 Personal history of nicotine dependence
CPT/HCPCS: 71046; 80053; 85025; 93005; 93010; 94644; 94664; 96374; 99284-25; A9270; J2930

== ENCOUNTER 2023-07-13 14:23 | Inpatient (IN) | payer OTHER ==
[~2023-07-13] VITALS: Ht 157.5 cm; Wt 73.5 kg
[~2023-07-13 14:23] MED LIST changes: +DELTASONE20 MG PO
[2023-07-13 15:13] LABS: BASOPHILS ABSOLUTE AUTO 0.04 K/mm3 (0.00-0.23); BASOPHILS PERCENT AUTO 1 % (0-2); EOSINOPHILS ABSOLUTE AUTO 0.14 K/mm3 (0.00-0.68); EOSINOPHILS PERCENT AUTO 2 % (0-6); Hemoglobin 14.4 g/dL (11.5-16.0); IMMATURE GRAN ABSOLUTE AUTO 0.04 K/mm3 (0.00-0.10); IMMATURE GRAN PERCENT AUTO 1 % (0-1); LYMPHOCYTES ABSOLUTE AUTO 0.64 K/mm3 (0.84-5.20); LYMPHOCYTES PERCENT AUTO 10 % (21-46); MONOCYTES ABSOLUTE AUTO 0.55 K/mm3 (0.16-1.47); MONOCYTES PERCENT AUTO 8 % (4-13); Mean Corpuscular HGB 33.4 pg (26.0-34.0); Mean Corpuscular HGB Conc 32.7 g/dL (31.5-36.5); Mean Corpuscular Volume 102 fL (80-100); NEUTROPHILS ABSOLUTE AUTO 5.17 K/mm3 (1.96-9.15); NEUTROPHILS PERCENT AUTO 79 % (41-73); RDW Coefficient Variation 14.3 % (11.7-14.2); RDW Standard Deviation 52.9 fL (35.1-46.3); Red Blood Cell Count 4.31 M/mm3 (3.80-5.20); White Blood Cell Count 6.58 K/mm3 (4.00-11.30)
[2023-07-13] MEDS ORDERED: Prednisone50 MG PO (15:50)
[2023-07-13] MEDS ORDERED: PLAVIX75 MG PO (15:51)
[2023-07-13 16:17] LABS: Base Excess Venous -8.3 mmol/L; Bicarbonate Venous 18.9 mmol/L (24.0-30.0); PCO2 Venous 29.4 mmHg (38-42); pH Blood Venous 7.37 (7.34-7.37)
[2023-07-13 16:18] LABS: Albumin, Blood 2.7 g/dL (3.4-5.0); Albumin/Globulin Ratio 0.8 (0.8-1.8); Bilirubin, Total 0.3 mg/dL (0.1-1.0); Bun/Creatinine Ratio 13.6 (12.0-20.0); Calcium, Blood 8.2 mg/dL (8.5-10.1); Creatinine, Blood 1.76 mg/dL (0.40-1.00); Globulin, Blood 3.6 g/dL (2.2-4.0); Potassium, Blood 5.4 mmol/L (3.5-5.5); Total Protein, Blood 6.3 g/dL (6.4-8.2)
[2023-07-13 16:25] LABS: Influenza A, PCR NEGATIVE (NEGATIVE); Influenza B, PCR NEGATIVE (NEGATIVE); Resp Syncytial Virus, PCR NEGATIVE (NEGATIVE); SARS-Cov-2 (COVID-19) PCR, MMC NEGATIVE (NEGATIVE)
[2023-07-13 22:04] VITALS: BP 111/73
[2023-07-14] VITALS (11 sets, daily range): BP systolic 81–116; BP diastolic 60–90
[2023-07-14 03:39] LABS: BASOPHILS ABSOLUTE AUTO 0.01 K/mm3 (0.00-0.23); BASOPHILS PERCENT AUTO 0 % (0-2); EOSINOPHILS ABSOLUTE AUTO 0.01 K/mm3 (0.00-0.68); EOSINOPHILS PERCENT AUTO 0 % (0-6); Hematocrit 44.1 % (33.0-51.0); Hemoglobin 14.5 g/dL (11.5-16.0); IMMATURE GRAN ABSOLUTE AUTO 0.03 K/mm3 (0.00-0.10); IMMATURE GRAN PERCENT AUTO 1 % (0-1); LYMPHOCYTES ABSOLUTE AUTO 0.41 K/mm3 (0.84-5.20); LYMPHOCYTES PERCENT AUTO 7 % (21-46); MONOCYTES ABSOLUTE AUTO 0.14 K/mm3 (0.16-1.47); MONOCYTES PERCENT AUTO 2 % (4-13); Mean Corpuscular HGB 33.1 pg (26.0-34.0); Mean Corpuscular HGB Conc 32.9 g/dL (31.5-36.5); Mean Corpuscular Volume 101 fL (80-100); Mean Platelet Volume 9.6 fL (9.1-12.4); NEUTROPHILS ABSOLUTE AUTO 5.22 K/mm3 (1.96-9.15); NEUTROPHILS PERCENT AUTO 90 % (41-73); Platelet Count 236 K/mm3 (150-400); RDW Coefficient Variation 13.9 % (11.7-14.2); RDW Standard Deviation 50.9 fL (35.1-46.3); Red Blood Cell Count 4.38 M/mm3 (3.80-5.20); White Blood Cell Count 5.82 K/mm3 (4.00-11.30)
[2023-07-14 03:42] LABS: Base Excess Venous -6.7 mmol/L; Bicarbonate Venous 19.8 mmol/L (24.0-30.0); PCO2 Venous 33.2 mmHg (38-42); pH Blood Venous 7.36 (7.34-7.37)
[2023-07-14 04:00] LABS: Magnesium, Blood 2.1 mg/dL (1.6-2.4)
--- NOTE | 2023-07-14 04:07 | NUR ---
SHIFT SUMMARY PATIENT A/Ox4, NO C/O PAIN, STATES FEELING SOB, TROUBLE BREATHING. STATES SHE NORMALLY USES O2 AT HOME ON 4Lpm. PT SpO2 QUICKLY DROPS TO LOW 80s WITH ANY ACTIVITY. ARRIVED TO UNIT ON 6L VIA NC AND SATs WHERE FREQUENTLY IN MID TO UPPER 80s, CHANGED TO OXYMIZER ON 10Lpn TO MAINTAIN ABOVE 90%. PT TOLERATED CPAP FOR ABOUT 2 HOURS THEN REFUSED, STATED SHE NEVER USES HER CPAP AT HOME. BED LOCKED AND IN LOWEST POSITION, HOB ELEVATED, CALL LIGHT WITHIN REACH.
[2023-07-14 04:09] LABS: Bun/Creatinine Ratio 13.9 (12.0-20.0); Calcium, Blood 8.6 mg/dL (8.5-10.1); Creatinine, Blood 2.01 mg/dL (0.40-1.00); Potassium, Blood 6.1 mmol/L (3.5-5.5)
--- NOTE | 2023-07-14 04:31 | NUR ---
CRITICAL LAB VALUE PER LAB, K=6.1, PROVIDER NOTIFIED OF RESULT. PER PROVIDER, WILL REVIEW AND PUT ORDERS IN.
--- NOTE | 2023-07-14 08:21 | NUR ---
CALLED DR QURESHI- PT HAD A POTASSIUM LEVEL OF 6.1 THIS AM. RECIEVED IV INSULIN AND D50. HR TRACEY DROPPING DOWN TO 38 ON TELE, AVERAGE 45. REQUIRING 10L O2 AT THIS TIME. SPOKE ABOUT POSSIBLE PCU TRANSFER. RECIEVED ORDER TO TRANSFER PT TO PCU AT THIS TIME. REPEAT POTASSIUM AT 0900.
--- NOTE | 2023-07-14 08:39 | NUR ---
DR QURESHI AT THE BEDSIDE- VERBAL ORDER RECIEVED FOR BID IV BUMEX 1MG. PLACED IN ORDER MANAGEMENT. STILL AWAITING PCU BED.
--- NOTE | 2023-07-14 09:15 | NUR ---
CALLED DR QURESHI- PT O2 SATS MAINTAINING AT 85% ON 13L VIA HIGH FLOW NC. BP 106/60. SPOKE ABOUT IV BUMEX. AWARE OF THE PT BP ORDER RECIEVED TO PROCEED WITH ADMININSTRATION OF 1MG IV BUMEX.
--- NOTE | 2023-07-14 09:58 | NUR ---
ARRIVAL TO PCU PT ARRIVED TO PCU5 AT 0935 VIA BED. REPORT TAKEN FROM NYA RN, THIS RN TO ASSUME CARE AT THIS TIME. SBP 97 ON ARRIVAL, DENIES CHEST PAIN/PRESSURE. HR 80'S. SPO2 88-93% ON 13L HI FLOW O2. BASELINE IS REPORTEDLY 4L. RR 22. COUGH NOTED ON ARRIVAL W/O SPUTUM PRODUCTION. WHEEZE IN BILATERAL LOWER LOBES ON LUNG AUSCULTATION. HOB ELEVATED. PUREWICK PLACED DUE TO O2 DESATURATION W/ ANY EXERTION AND URINARY URGENCY; ATTENDS IN PLACE. PT ORIENTED TO ROOM/UNIT. CALL LIGHT WITHIN REACH, BED IN LOWEST POSITION.
[2023-07-14 10:30] LABS: Bun/Creatinine Ratio 14.5 (12.0-20.0); Calcium, Blood 8.7 mg/dL (8.5-10.1); Potassium, Blood 5.1 mmol/L (3.5-5.5)
--- NOTE | 2023-07-14 17:50 | NUR ---
END OF SHIFT NOTE PT A&OX4, ABLE TO CALL APPROPRIATELY AND MAKE NEEDS KNOWN TO STAFF. PLEASANT AND COOPERATIVE W/ ALL CARE. SBP 80-110'S, DENIES CHEST PAIN/PRESSURE. HR 60-90'S, NSR. SPO2 >88% ON AIRVO 45L W/ FIO2 55%. SOB/DESATS INTO 80'S WITH ANY EXERTION. HOB ELEVATED. PT USING INCENTIVE SPIROMETRY. WET COUGH W/ MINIMAL SPUTUM PRODUCTION; SPUTUM SAMPLE SENT THIS PM. ABX INFUSING PER EMAR. BED BATH COMPLETED. PUREWICK IN PLACE DRAINING YELLOW URINE TO SUCTION. ATTENDS IN PLACE. NO OTHER EVENTS. CALL LIGHT WITHIN REACH, BED IN LOWEST POSITION. WILL REPORT TO ONCBIRGIT NUNO RN.
[2023-07-14 18:52] LABS: Acinetobacter baumannii DNA Not Detected copy/mL (NOT DETECT); Adenovirus DNA Not Detected (NOT DETECT); Chlamydia pneumonia Not Detected (NOT DETECT); Enterobacter cloacae DNA Not Detected copy/mL (NOT DETECT); Escherichia coli DNA Not Detected copy/mL (NOT DETECT); Haemophilus influenzae DNA Not Detected copy/mL (NOT DETECT); Human Coronavirus RNA Not Detected (NOT DETECT); Human Metapneumovirus RNA Not Detected (NOT DETECT); Influenza virus A RNA Not Detected (NOT DETECT); Influenza virus B RNA Not Detected (NOT DETECT); Klebsiella aerogenes DNA Not Detected copy/mL (NOT DETECT); Klebsiella oxytoca DNA Not Detected copy/mL (NOT DETECT); Klebsiella pneumoniae DNA Not Detected copy/mL (NOT DETECT); Legionella pneumophila Not Detected (NOT DETECT); Moraxella catarrhalis DNA Not Detected copy/mL (NOT DETECT); Mycoplasma pneumoniae Not Detected (NOT DETECT); Parainfluenza virus RNA Not Detected (NOT DETECT); Proteus sp DNA Not Detected copy/mL (NOT DETECT); Pseudomonas aeruginosa DNA Not Detected copy/mL (NOT DETECT); Respiratory syncytial Vir RNA Not Detected (NOT DETECT); Rhinovirus+Enterovirus RNA Not Detected (NOT DETECT); Serratia marcescens DNA Not Detected copy/mL (NOT DETECT); Staphylococcus aureus DNA Not Detected copy/mL (NOT DETECT); Streptococcus agalactiae DNA Not Detected copy/mL (NOT DETECT); Streptococcus pneumoniae DNA Not Detected copy/mL (NOT DETECT); Streptococcus pyogenes DNA Not Detected copy/mL (NOT DETECT)
[2023-07-15 03:45] VITALS: BP 88/59
--- NOTE | 2023-07-15 04:52 | NUR ---
SHIFT SUMMARY ASSUMED CARE OF PT AT 1900. PT IS A/OX4. HEART SOUNDS REGULAR .LUNG SOUNDS HAVE CRACKLES AT BASES. PT REMAINED IN AIRVO T/O THE NOC. PT ONLY TOLERATED BIPAP FOR 3 HOURS. PT USED PURWICK DURING THE NOC. DURING ATTENDS CHANGE PT DESATURATED TO 83% BUT RECOVERED QUICKLY. PT HAD NO NEW COMPLAINTS.
[2023-07-15 05:06] LABS: Bun/Creatinine Ratio 14.5 (12.0-20.0); Creatinine, Blood 2.34 mg/dL (0.40-1.00); Potassium, Blood 5.2 mmol/L (3.5-5.5)
[2023-07-15 07:00] VITALS: BP 87/60
[2023-07-15 11:18] VITALS: BP 104/68
--- NOTE | 2023-07-15 11:19 | NUR ---
NOTE PT AWAKE AND PLAYING SOLITARE ON HER COMPUTOR. R/T AT BEDSIDE. SETTING UP FOR CPT. DEEP, DRY, NON PROCUCTIVE COUGH. TOLERATING AIRVO WELL. DESATS WITH TALKING, MOVING COUGHING. DENIES PAIN OR DIZZINESS. CHELSY CHANGED THIS MORNING PER PROTOCOL. PT ABLE TO SHIFT WEIGHT FOR SKIN PROTECTION. CAN EAT SLOWLY WITH REST BREAKS TO CATCH HER BREATH. CONTINUE POC.
--- NOTE | 2023-07-15 18:23 | NUR ---
NOTE PT AWAKE AND ALERT. SHE HAS PLAYED 10sec MOST OF THE AFTERNOON. BREATHING IS LESS LABORED THIS EVEING. HER SPO2 IS LESS LABILE WHEN SHE DRINKS AND TALKS. DENIED PAIN/DISCOMFORT. SON CAME FOR A VISIT. HE LIVES IN [facility]. TOLERATING THE AIRVO WELL. CONTINUE POC.
[2023-07-15 19:51] VITALS: BP 104/60
[2023-07-15 23:59] VITALS: BP 104/56
[2023-07-16 04:47] VITALS: BP 99/54
--- NOTE | 2023-07-16 05:50 | NUR ---
SHIFT SUMMARY PATIENT ALERT AND ORIENTED, ANXIOUS AT TIMES, ABLE TO MAKE NEEDS KNOWN TO STAFF. BP STABLE, TELE READING SR-ST 90-110s, ON AIRVO DURING THE NIGHT 50L 75%, PATIENT WILL DESAT WITH MINIMAL ACTIVITY. PATIENT WAS ABLE TO TOLERATE BIPAP FOR ABOUT 2 HOURS BEFORE REQUESTING AIRVO TO BE PLACED. PUREWICK IN PLACE DUE TO OXYGEN REQUIREMENTS, ADEQUATE OUTPUT. NO OTHER SIGNIFICANT CHANGES, WILL REPORT TO DAY SHIFT RN.
[2023-07-16 08:47] VITALS: BP 103/62
[2023-07-16 08:55] LABS: Bun/Creatinine Ratio 17.1 (12.0-20.0); Calcium, Blood 9.1 mg/dL (8.5-10.1); Creatinine, Blood 2.34 mg/dL (0.40-1.00); Potassium, Blood 4.7 mmol/L (3.5-5.5)
[2023-07-16 12:54] VITALS: BP 113/57
[2023-07-16 15:24] VITALS: BP 112/68
--- NOTE | 2023-07-16 17:25 | NUR ---
SHIFT SUMMARY PT IS ALERT AND ORIENTED X 4, SHE WAS A SBA TO RECLINER CHAIR DURING SHIFT AND APPEARED STEADY ON HER FEET. BP AND HR STABLE, SPO2 MAINTAINED 88% AND GREATER VIA AIRVO AT 40L W/ 60-65% FIO2. SHE HAS DENIED FEELINGS OF CHEST PAIN/PRESSURE, NAUSEA/VOMITTING. OCCASSIONAL PRODUCTIVE COUGH NOTED, PT ENCOURAGED TO USE INCENTIVE SPIROMETER AND FLUTTER CASHIER TUBE ROOM PER ORDERS. IV IS INFUSING ABX PER EMAR ORDERS. PW DEVICE IS IN PLACE AND CONNECTED TO SUCTION DUE TO PT EXPERIENCING EPISODES OF INCONTINENCE WELL FEELING SOB. LAST BM UNKNOWN BUT PT REPORTED THAT AT BASELINE SHE EITHER HAS DIARRHEA OR CONSTIPATION AND THAT SHE TOOK "PILLS TO STOP THE DIARRHEA" PRIOR TO ADMISSION. PT IS NOW IN BED AND APPEARS TO BE WATCHING TV. CALL LIGHT IS W/IN REACH.
[2023-07-16 20:06] VITALS: BP 112/67
[2023-07-16 23:09] VITALS: BP 112/75
[2023-07-17 03:59] VITALS: BP 112/64
[2023-07-17 05:12] LABS: Bun/Creatinine Ratio 20.5 (12.0-20.0); Creatinine, Blood 2.19 mg/dL (0.40-1.00); Potassium, Blood 4.4 mmol/L (3.5-5.5)
--- NOTE | 2023-07-17 06:04 | NUR ---
SHIFT SUMMARY PATIENT ALERT AND ORIENTED x4, ABLE TO MAKE NEEDS KNOWN. BP STABLE, TELE READING SR 70s DURING THE NIGHT, PATIENT ON AIRVO 40L 65% WITH SPO2 LOW 90s DURING THE NIGHT, DECLINING BIPAP. PATIENT WILL DESAT WITH ANY ACTIVITY OR PROLONGED CONVERSATION BUT IS ABLE TO RECOVER QUICKLY. ADJUSTING SELF IN BED INDEPENDENTLY. PUREWICK IN PLACE, ADEQUATE OUTPUT. NO OTHER CHANGES DURING THE NIGHT. WILL REPORT TO DAY SHIFT RN.
[2023-07-17 07:18] VITALS: BP 104/66
[2023-07-17 11:54] VITALS: BP 117/72
[2023-07-17 16:09] VITALS: BP 111/79
--- NOTE | 2023-07-17 16:49 | NUR ---
SHIFT SUMMARY PT IS ALERT AND ORIENTED X 4, SHE HAS BEEN A 1 ASSIST TO MANAGE TUBES/LINES TO RECLINER CHAIR. SHE BECOMES DYSPNEIC W/ MINIMAL EXERTION, SPO2 MAINTAINED 88% AND GREATER VIA AIRVO 40L AT 55-65% FIO2. SHE HAS EXPERIENCED EPISODES OF NAUSEA/VOMITTING DURING SHIFT, PLEASE SEE EMAR FOR NAUSEA MANAGEMENT. SHE HAS ALSO HAD A PRODUCTIVE COUGH THIS AM THAT TRANSITIONED TO A HACKING DRY COUGH THIS AFTERNOON. AT APPROX 1230 THIS NURSE WENT INTO PT ROOM BECAUSE HER COUGHING WAS AUDIBLE FROM THE HALLWAY. THIS RN WAS CONCERNED THAT THE PT ASPIRATED WHEN EATING HER LUNCH, DR. QURESHI MADE AWARE, PT MADE NPO AND SPEECH EVALUATION PLACED. PT ALSO BECAME EXTREMELY NAUSEOUS AT THIS TIME AND STARTED VOMITTING, REGLAN GIVEN PER EMAR ORDERS. BP AND HR STABLE, SHE REPORTED CHEST PAIN WHEN COUGHING. SHE DENIED FEELINGS OF ABD PAIN/TENDERNESS. SHE HAS HAD VARIOUS FAMILY MEMBERS AT THE BEDSIDE DURING SHIFT. PW DEVICE IS IN PLACE ALONG W/ CLEAN ATTENDS. PT NOW APPEARS TO BE WATCHING TV IN BED, CALL LIGHT IS W/IN REACH.
[2023-07-17 19:27] VITALS: BP 127/80
[2023-07-17 23:28] VITALS: BP 99/61
[2023-07-18 04:46] LABS: Bun/Creatinine Ratio 22.4 (12.0-20.0); Calcium, Blood 9.6 mg/dL (8.5-10.1); Creatinine, Blood 2.05 mg/dL (0.40-1.00); Potassium, Blood 4.3 mmol/L (3.5-5.5)
[2023-07-18 05:00] VITALS: BP 117/74
--- NOTE | 2023-07-18 06:48 | NUR ---
SHIFT SUMMARY PATIENT ALERT AND ORIENTED x4, ABLE TO MAKE NEEDS KNOWN TO STAFF. BP STABLE, TELE READING SR-ST, DENIED CHEST PAIN. ON AIRVO 50L 70%, PATIENT HAVING SIGNIFICANT COUGHING FITS THIS MORNING, DESATTED INTO LOW 60s AND PATIENT BECAME ANXIOUS. AIRVO SETTING TITRATED UP UNTIL SPO2 88-90%. PATIENT ENCOURAGED TO FOCUS ON BREATHING INSTEAD OF USING RESERVES. PATIENT WAS NPO BUT SIPS/CHIPS ALLOWED, PATIENT NOW COMPLETELY NPO. ICE/WATER REMOVED FROM BEDSIDE. PUREWICK IN PLACE DRAINING YELLOW URINE, ADEQUATE OUTPUT. NO OTHER CHANGES, WILL REPORT TO DAY SHIFT RN.
[2023-07-18 07:25] VITALS: BP 124/79
--- NOTE | 2023-07-18 07:43 | NUR ---
ASSUMPTION OF CARE PT ALERT, ORIENTED x4; ANXIOUS BUT COOPERATIVE WITH CARE. PT ABLE TO MAKE NEEDS KNOWN. PT DENIES PAIN, CHEST PAIN/PRESSURE, NAUSEA, DIZZINESS AND NUMB/TINGLING. PT SOB WITH EXERTION, AT REST SPO2 >88% ON 40L 70% FIO2, BREATHING EVEN AND UNLABORED AT THIS TIME. TELE SINUS 90'S, BP STABLE. ABD SOFT NONTENDER WITH HYPOACTIVE BT x4 QUAD. NO EDEMA NOTED TO BLE. OTHER VSS. WILL COTNINUE TO MONITOR. PT REMAINS NPO THIS AM, AWAITING SPEECH THERAPY EVAL.
[2023-07-18 11:33] VITALS: BP 115/72
[2023-07-18 15:26] VITALS: BP 95/61
--- NOTE | 2023-07-18 16:53 | NUR ---
Shift Summary Titrated pt down from 40l 70% fio2 to 55% fio2 t/o shift. Pt up in chair this afternoon for a approx 2 hours. Other vss. No other acute chagnes noted. Will continue to monitor.
[2023-07-18 19:54] VITALS: BP 117/74
[2023-07-18 23:32] VITALS: BP 116/72
[2023-07-19 04:46] VITALS: BP 99/73
--- NOTE | 2023-07-19 06:09 | NUR ---
SHIFT SUMMARY PATIENT ALERT AND ORIENTED, ANXIOUS AT TIMES. ABLE TO MAKE NEEDS KNOWN. BP STABLE, TELE READING SR-ST DURING THE NIGHT. PATIENT ON AIRVO 40L 45% WITH SPO2 LOW 90s, PATIENT WILL DESAT WITH EXERTION OR PROLONGED CONVERSATION. PUREWICK IN PLACE DRAINING YELLOW URINE TO SUCTION. ADJUSTING SELF IN BED. NO OTHER CHANGES DURING THE NIGHT. WILL REPORT TO DAY SHIFT RN.
[2023-07-19 06:41] LABS: Albumin, Blood 3.2 g/dL (3.4-5.0); Anion Gap 7 mmol/L (6-16); Blood Urea Nitrogen 52 mg/dL (8-24); Bun/Creatinine Ratio 24.6 (12.0-20.0); CO2, Blood 27 mmol/L (21-32); Calcium, Blood 9.6 mg/dL (8.5-10.1); Chloride, Blood 103 mmol/L (98-108); Creatinine, Blood 2.11 mg/dL (0.40-1.00); Glomerular Filtration Rate 24 (60-); Glucose, Blood 83 mg/dL (70-99); Potassium, Blood 4.5 mmol/L (3.5-5.5); Sodium, Blood 137 mmol/L (136-145)
[2023-07-19 07:37] VITALS: BP 108/56
[2023-07-19 09:30] LABS: Free Thyroxine 0.95 ng/dL (0.70-1.60)
[2023-07-19 09:31] LABS: Triiodothyronine, Free 1.22 pg/mL (2.18-3.98)
[2023-07-19 11:31] VITALS: BP 124/80
[2023-07-19 15:51] VITALS: BP 124/88
--- NOTE | 2023-07-19 19:15 | NUR ---
Shift Summary Pt alert, oriented x4; anxious at times but cooperative with care. Pt resting in bed, up wiht 1 person assist to chair. Pt sob with exertion, spo2 88-90% on airvo, 40l and fio2 from 60% to 40% this evening. Tele sinus to sinus tach 90-100's, bp stable. Abd soft, nontender, hypoactive bt t/o. No edema noted. Other vss. Report given to oncoming rn. Plans to titrate down o2, and have bronchoscopy.
[2023-07-19 19:40] VITALS: BP 107/72
[2023-07-19 23:39] VITALS: BP 112/79
[2023-07-20 04:11] VITALS: BP 136/85
--- NOTE | 2023-07-20 04:43 | NUR ---
SHIFT SUMMARY A/OX4, ANXIOUS AT TIMES. CALLS APPROPRIATELY. 1P ASSIST WITH FWW FOR TRANSFERS. PUREWICK IN PLACE. TELE SR/ST 80-110. SPO2 88-89% ON AIRVO 40L 45%, DRY HACKING COUGH NOTED. VSS, NO ACUTE CHANGES AT THIS TIME. BED IN LOWEST POSITION WITH CALL LIGHT IN REACH. WILL CONTINUE TO MONITOR AND REPORT TO ONCOMING RN.
[2023-07-20 05:38] LABS: Albumin, Blood 3.3 g/dL (3.4-5.0); Anion Gap 9 mmol/L (6-16); Blood Urea Nitrogen 59 mg/dL (8-24); Bun/Creatinine Ratio 27.3 (12.0-20.0); CO2, Blood 26 mmol/L (21-32); Calcium, Blood 9.6 mg/dL (8.5-10.1); Chloride, Blood 99 mmol/L (98-108); Creatinine, Blood 2.16 mg/dL (0.40-1.00); Glomerular Filtration Rate 23 (60-); Glucose, Blood 94 mg/dL (70-99); Phosphorus, Blood 3.8 mg/dL (2.5-4.9); Potassium, Blood 4.4 mmol/L (3.5-5.5); Sodium, Blood 134 mmol/L (136-145)
[2023-07-20 07:27] VITALS: BP 125/86
[2023-07-20 11:18] VITALS: BP 120/77
--- NOTE | 2023-07-20 12:15 | NUR ---
PT N/V PT COMPLAINING OF N/V THSI AM. SHE HAD ABOUT 100CC'S OF EMESIS AFTER BREAKFAST. SHE WAS MEDICATED W/ ZOFRAN ABOUT 0930 AND WAS FEELING BETTER. AT ABOUT 1200 SHE WAS FEELING NAUSEATED AND I CALLED THE HOSP AND SHE WANTED ME TO GIVE A ONE TIME ORDER OF 4MG ZOFRAN. ORDER PENDING. I OFFERED THE PT CLEAR LIQUIDS AND BROTH INSTEAD OF HER SOLID LUNCH AND SHE REFUSED AT THIS TIME. SHE WANTS TO GET MEDICATED AND TRY TO EAT.
[2023-07-20 15:46] VITALS: BP 127/81
--- NOTE | 2023-07-20 16:31 | NUR ---
SHIFT SUMMARY PT IS A&OX4, AND CAN MAKE HER NEEDS KNOWN. SHE HAS HAD ANXIETY ABOUT MANY DIFFERENT THINGS TODAY AND HAS BEEN IRRITABLE. THE PLAN IS FOR HER TO BE NPO AT 2400 FOR BRONCOSCOPY 07/21. ALL HEP PAST 0000 NEEDS TO BE HELD PER DR. HORAN. PT HAS BEEN ON THE AIRVO TODAY. SHE HAS NEEDED TITRATION TO MAINTAIN SP02 88-90%. CURRENT SETTINGS OF 40L @45%. ON TELE SHE HAS BEEN ST 100'S. BP STABLE. PT HAD SOME NAUSEA TODAY, SEE PREVIOUS NOTE FOR MORE INFORMATION. NO ACUTE EVENTS. FIRE IGNITION RISK HAS BEEN ASSESSED AND EDUCATION HAS BEEN PROVIDED.
[2023-07-20 21:51] VITALS: BP 120/79
[2023-07-20 23:51] VITALS: BP 121/75
[2023-07-21] VITALS (29 sets, daily range): BP systolic 68–137; BP diastolic 58–102
--- NOTE | 2023-07-21 04:34 | NUR ---
SHIFT SUMMARY PT A&Ox4, CALLS AND COMMUNICATES NEEDS APPROPRIATELY. BP STABLE, SR-ST 90-110's, DENIES CP/PRESSURE. SpO2> 88% ON 40L 40-55% FiO2 VAI AIRVO, REPORTS INTERMITTENT SOB. PT NPO AT 0000. PT CONTINENT OF URINE, HAS MOMENTS OF INCONTINENCE WHILE COUGHING, PUREWICK IN PLACE. PURWICK LEAKING DURING PART OF SHIFT, ATTENDS CHANGE AND BOUCHRA CARE PROVIDED. NO OTHER EVENTS, WILL REPORT TO ONCOMING RN.
[2023-07-21 04:44] LABS: Bun/Creatinine Ratio 27.5 (12.0-20.0); Calcium, Blood 9.8 mg/dL (8.5-10.1); Creatinine, Blood 2.18 mg/dL (0.40-1.00); Potassium, Blood 4.5 mmol/L (3.5-5.5)
--- NOTE | 2023-07-21 08:53 | NUR ---
IV SITE 20G R WRIST D&I/PATENT. FLUSHED WITH 10NS.
--- NOTE | 2023-07-21 09:09 | NUR ---
07/21/23 0909 Kristel Funk HISTORY, CHART, MEDICATIONS AND ALLERGIES REVIEWED BEFORE START OF PROCEDURE. PATIENT CONFIRMS NPO STATUS AND AGREES WITH SCHEDULED PROCEDURE. 3-LEAD EKG REVIEWED WITH PHYSICIAN PRIOR TO START OF PROCEDURE. MONITOR INTACT WITH CONTINUOUS PULSE OXIMETRY,CAPNOGRAPHY, 3-LEAD EKG, INTERMITTENT BP. SUPPLEMENTAL O2 TO BE TITRATED THROUGHOUT PROCEDURE TO MAINTAIN O2 SATURATION ABOVE 90%. PATIENT DETERMINED TO BE ASA APPROPRIATE FOR PROPOFOL SEDATION PRIOR TO START OF PROCEDURE BY .
--- NOTE | 2023-07-21 17:17 | NUR ---
SHIFT SUMMARY PT IS A&OX4, AND CAN MAKE HER NEEDS KNOWN. ON TELE THE PT HAS BEEN ST 100'S AND HAS BEEN ON THE AIRVO. THE PT IS CURRENTLY ON 40L @45%. THE AIRVO HAS BEEN TITRAITED ALL SHIFT. THE PT HAS A BRONCOSCOPY TODAY WHERE DR. HORAN STATED HE IS SUSPECTING CANCER. BIOPSY PENDING. PT HAS BEEN COUGHING UP A SCANT AMOUNT OF BLOOD, WHICH DR. HORAN SAID WAS EXPECTED. FAMILY UPDATED ON CARE. BP STABLE. SHE WAS MEDICATED ONCE W/ TYLENOL DUE TO C/O HEADACHE. PT STATES SHE HAS CHRONIC MIGRAINES. NAUSEA HAS BEEN MINIMAL TODAY. NO ACUTE EVENTS. FIRE IGNITION RISK ASSESSED.
[2023-07-22 04:21] VITALS: BP 104/80
--- NOTE | 2023-07-22 05:18 | NUR ---
SHIFT SUMMARY ASSUMED CARE OF PT AT 1900. PT IS A/OX4. HEART SOUNDS REGULAR. LUNG SOUNDS HAVE CRACKLES T/O. PT REMAINED ON HEATED HIGH FLOW T/O NOC, 40L/65%. PT NEEDED 100% O2 WHEN TURNING IN BED TO GET CHANGED. SHE WOULD DROP TO 79% WITH ACTIVITY. PT USED PURWICK T/O THE NOC. PT C/O NOT BEING ABLE TO SLEEP.
[2023-07-22 07:34] VITALS: BP 122/83
[2023-07-22 11:29] VITALS: BP 96/73
--- NOTE | 2023-07-22 12:32 | NUR ---
"Spiritual Care Visit | Nurse/Pt. Request Pt. is sitting up in bed eating lunch when she welcomes my visit. Pts. son is also present. Facilitate a short life review. Pt. is unsettled about the prospect of having to go to [place] for further treatment. Listen with empathy and a calming presence. Pt. displays evidence of awareness and engagement. Prayed with Pt. Pt. and her son verbalized gratitude for the spiritual care visit."
--- NOTE | 2023-07-22 12:59 | NUR ---
Pt sitting in recliner chair and on AIRVO. Pt is known to this sign writer hand from previous hospital stay. Pt initially on phone when entering the room but she hangs up to engage in conversation. Offered therapeutic listening as Pt reports feeling anxious and "not wanting to ". Reviewed plan of care with Pt and the potential plan of transfering to [facility]. Continued supportive visit. Pt receives another phone call. This RN ended visit. Palliative Care will remain available
[2023-07-22 15:35] VITALS: BP 112/74
--- NOTE | 2023-07-22 16:10 | NUR ---
PT HAS BEEN A/O X4 FOR THIS SHIFT. SHE WAS ABLE TO AMBULATE FROM GURNEY TO CHAIR AND FROM CHAIR BACK TO BED WITHOUT MAJOR DESATURATION, BUT DID REQUIRE 100% O2 ON AIRVO FOR AMBULATION. SHE IS SEEN BY DR HORAN TODAY SHE IS NOTIFIED THAT SHE WILL LIKELY BE TRANSFERED TO [facility] FOR HIGHER LEVEL OF CARE AND PROCEDURE, SHE WAS ANXIOUS ABOUT THIS TRANSFER SPIRITUAL CARE CAME TO SEE HER AND THIS SEEMED TO EASE HER MIND ABOUT TRANSFER. VSS. DENIES WORSENING SOB, HER OXYGEN DEMAND IS HIGH BUT DOES NOT APPEAR TO BE IN DISTRESS. AIRVO SETTING WERE CHANGED TO 45% ON 55L AT 1300 TODAY
[2023-07-22 19:39] VITALS: BP 106/62
[2023-07-22 23:14] VITALS: BP 108/67
[2023-07-23 04:41] VITALS: BP 112/68
--- NOTE | 2023-07-23 04:44 | NUR ---
ASSUMED CARE OF PT AT 1900. NO ACUTE CHANGES NOTED. PT'S O2 DEMAND HAS INCREASED WHILE SLEEPING TO 70L/70%, CONTINUOUS O2 MONITORING IN PLACE. SPO2 APPEARS TO DROP TO THE LOW 80s AND THEN INCREASE ON ITS OWN TO THW LOW 90s. PT SEEMS TO BE SLEEPING DURING THESE EPISODES AND MAY POSSIBLY HAVE A SLEEP APNEA COMPONENT WITH HIGHER O2 NEEDS WHILE SLEEPING. PTs HR IN THE 90s MOST OF THE NIGHT AND CONVERTED BACK TO SR WITH PVCs. PT HAS HAD NO COMPLAINTS, DENIES FEELING SOB. PUREWICK IN PLACE DRAINING ADEQUATE AMOUNT OF CLEAR YELLOW URINE. PT REMAINS A&OX4 T/O THE SHIFT. ABLE TO USE CALL LIGHT FOR NEEDS. WILL CONTINUE TO MONITOR AND GIVE REPORT TO DAY SHIFT RN.
[2023-07-23 07:45] VITALS: BP 106/68
[2023-07-23 12:00] VITALS: BP 108/67
[2023-07-23 15:06] VITALS: BP 109/73
[2023-07-23 15:38] VITALS: BP 109/73
--- NOTE | 2023-07-23 16:59 | NUR ---
REPORT CALLED TO LOREN CHRISTOPHER AT [facility]
== END 2023-07-23 16:39 | disposition short-term general hospital (02) | DRG 180 ==
LOC: ER 14:23 → PCU 19:05 → MEDS 19:05 → PCU 07-14 09:37
PROVIDERS: Emergency Medicine; Internal Medicine; Internal Medicine Critical Care Medicine; Nurse Practitioner Acute Care; Student in an Organized Health Care Education/Training Program; ADMIT Internal Medicine
PROC: 5A0945A Assistance with Respiratory Ventilation, 24-96 Consecutive Hours, High Flow/Velocity Cannula (ICD-10-PCS; 2023-07-15)
PROC: 0BB58ZX Excision of Right Middle Lobe Bronchus, Via Natural or Artificial Opening Endoscopic, Diagnostic (ICD-10-PCS; 2023-07-21)
PROC: 0BB68ZX Excision of Right Lower Lobe Bronchus, Via Natural or Artificial Opening Endoscopic, Diagnostic (ICD-10-PCS; principal; 2023-07-21 09:00)
DX: C34.31 Malignant neoplasm of lower lobe, right bronchus or lung (principal); I50.43 Acute on chronic combined systolic (congestive) and diastolic (congestive) heart failure; J18.9 Pneumonia, unspecified organism; J96.21 Acute and chronic respiratory failure with hypoxia; J44.1 Chronic obstructive pulmonary disease with (acute) exacerbation; J44.0 Chronic obstructive pulmonary disease with (acute) lower respiratory infection; J98.11 Atelectasis; I13.0 Hypertensive heart and chronic kidney disease with heart failure and stage 1 through stage 4 chronic kidney disease, or unspecified chronic kidney disease; N18.4 Chronic kidney disease, stage 4 (severe); C34.2 Malignant neoplasm of middle lobe, bronchus or lung; E11.22 Type 2 diabetes mellitus with diabetic chronic kidney disease; J43.9 Emphysema, unspecified; K21.9 Gastro-esophageal reflux disease without esophagitis; K44.9 Diaphragmatic hernia without obstruction or gangrene; G47.33 Obstructive sleep apnea (adult) (pediatric); F32.A Depression, unspecified; J84.10 Pulmonary fibrosis, unspecified; E78.5 Hyperlipidemia, unspecified; J98.09 Other diseases of bronchus, not elsewhere classified; R00.1 Bradycardia, unspecified; I48.0 Paroxysmal atrial fibrillation; M19.90 Unspecified osteoarthritis, unspecified site; I27.20 Pulmonary hypertension, unspecified; T38.0X5A Adverse effect of glucocorticoids and synthetic analogues, initial encounter; E07.81 Sick-euthyroid syndrome; B96.89 Other specified bacterial agents as the cause of diseases classified elsewhere; E11.65 Type 2 diabetes mellitus with hyperglycemia; Z99.81 Dependence on supplemental oxygen; Z79.2 Long term (current) use of antibiotics; Z79.52 Long term (current) use of systemic steroids; Z79.890 Hormone replacement therapy; Z79.51 Long term (current) use of inhaled steroids; Z88.5 Allergy status to narcotic agent; Z88.1 Allergy status to other antibiotic agents; Z88.2 Allergy status to sulfonamides; Z88.8 Allergy status to other drugs, medicaments and biological substances; Z91.018 Allergy to other foods; Z91.048 Other nonmedicinal substance allergy status; Z79.02 Long term (current) use of antithrombotics/antiplatelets; Z11.52 Encounter for screening for COVID-19
CPT/HCPCS: 0241U; 36415; 71045; 71046; 71250; 71260; 80048; 80053; 80069; 82803; 82947; 83036; 83735; 83880; 84439; 84443; 84481; 84482; 84484; 85025; 87040; 87070; 87205; 87633; 88108; 88305; 88312; 88341; 88342; 92526; 92610; 93005; 93010; 94640; 94660; 94664; 94667; 94668; 94760; 94762; 96374-59; 96375-59; 97110; 97112; 97162; 97166; 97530; 97535; 99285-25; A9270; J0171; J0696; J1200; J1644; J1815; J1940; J2001; J2060; J2405; J2704; J2765; J2920; J2930; J7050; J7120; Q9967